=== PATIENT | male | born 1960 | race Caucasian/White ===

== ENCOUNTER → 2019-05-15 09:16 | Outpatient (BNVA) | payer BC, SELFPAY | PROVIDERS: Family Provider Nurse Practitioner Family; PCP Registered Nurse; Visit Provider Registered Nurse | DX: E11.9 Type 2 diabetes mellitus without complications (principal); I10 Essential (primary) hypertension | CPT/HCPCS: 83036 ==

== ENCOUNTER → 2019-08-11 08:31 | Outpatient (BNVA) | payer BC, SELFPAY | PROVIDERS: Family Provider Nurse Practitioner Family; PCP Registered Nurse; Visit Provider Registered Nurse | DX: E11.9 Type 2 diabetes mellitus without complications (principal); I10 Essential (primary) hypertension; E78.5 Hyperlipidemia, unspecified; N40.0 Benign prostatic hyperplasia without lower urinary tract symptoms | CPT/HCPCS: 80061; 82044; 83036; 84153 ==

== ENCOUNTER → 2019-11-27 13:40 | Outpatient (BNVA) | payer BC, SELFPAY | PROVIDERS: Family Provider Nurse Practitioner Family; PCP Registered Nurse; Visit Provider Registered Nurse | DX: E11.9 Type 2 diabetes mellitus without complications (principal) | CPT/HCPCS: 80053; 83036 ==

== ENCOUNTER → 2019-12-11 13:09 | Outpatient (BNVA) | payer BC, SELFPAY | PROVIDERS: Family Provider Nurse Practitioner Family; PCP Registered Nurse; Visit Provider Registered Nurse | DX: L98.9 Disorder of the skin and subcutaneous tissue, unspecified (principal) | CPT/HCPCS: 88305 ==

== ENCOUNTER → 2020-04-08 08:12 | Outpatient (BNVA) | payer BC, SELFPAY | PROVIDERS: Family Provider Nurse Practitioner Family; PCP Registered Nurse; Visit Provider Registered Nurse | DX: E11.9 Type 2 diabetes mellitus without complications (principal) | CPT/HCPCS: 83036 ==

== ENCOUNTER → 2020-07-26 09:27 | Outpatient (BNVA) | payer OTHER, SELFPAY | PROVIDERS: Family Provider Nurse Practitioner Family; PCP Registered Nurse; Visit Provider Registered Nurse | DX: E11.9 Type 2 diabetes mellitus without complications (principal); I10 Essential (primary) hypertension; Z12.5 Encounter for screening for malignant neoplasm of prostate | CPT/HCPCS: 80053; 80061; 82043; 83036; 85025; G0103 ==

== ENCOUNTER → 2020-12-31 08:19 | Outpatient (BNVA) | payer OTHER, SELFPAY | PROVIDERS: Family Provider Nurse Practitioner Family; PCP Registered Nurse; Visit Provider Registered Nurse | DX: E11.9 Type 2 diabetes mellitus without complications (principal) | CPT/HCPCS: 80053; 83036 ==

== ENCOUNTER → 2021-02-04 08:09 | Outpatient (BNVA) | payer OTHER, SELFPAY | PROVIDERS: Family Provider Nurse Practitioner Family; PCP Registered Nurse; Referring Provider Registered Nurse; Visit Provider Internal Medicine | DX: E11.65 Type 2 diabetes mellitus with hyperglycemia (principal); E11.59 Type 2 diabetes mellitus with other circulatory complications; I25.10 Atherosclerotic heart disease of native coronary artery without angina pectoris; E78.5 Hyperlipidemia, unspecified; I10 Essential (primary) hypertension; Z87.891 Personal history of nicotine dependence | CPT/HCPCS: 99204 ==

== ENCOUNTER → 2021-05-13 11:02 | Outpatient (BNVA) | payer MEDICAID, SELFPAY | PROVIDERS: Family Provider Nurse Practitioner Family; PCP Registered Nurse; Visit Provider Registered Nurse | DX: E78.5 Hyperlipidemia, unspecified (principal); E11.65 Type 2 diabetes mellitus with hyperglycemia; I10 Essential (primary) hypertension | CPT/HCPCS: 80053; 80061; 85025 ==

== ENCOUNTER → 2021-05-14 08:41 | Outpatient (BNVA) | payer MEDICAID, SELFPAY | PROVIDERS: Family Provider Nurse Practitioner Family; PCP Registered Nurse; Visit Provider Registered Nurse | DX: E11.65 Type 2 diabetes mellitus with hyperglycemia (principal) | CPT/HCPCS: 83036 ==

== ENCOUNTER → 2021-08-15 09:18 | Outpatient (BNVA) | payer MEDICAID, SELFPAY | PROVIDERS: Family Provider Nurse Practitioner Family; PCP Registered Nurse; Visit Provider Registered Nurse | DX: E11.59 Type 2 diabetes mellitus with other circulatory complications (principal); I25.10 Atherosclerotic heart disease of native coronary artery without angina pectoris; Z12.11 Encounter for screening for malignant neoplasm of colon; E11.65 Type 2 diabetes mellitus with hyperglycemia; M47.816 Spondylosis without myelopathy or radiculopathy, lumbar region; I10 Essential (primary) hypertension | CPT/HCPCS: 80053; 83036 ==

== ENCOUNTER → 2021-10-03 15:41 | Outpatient (BNVA) | payer MEDICAID, SELFPAY | PROVIDERS: Family Provider Nurse Practitioner Family; PCP Registered Nurse; Visit Provider Surgery | DX: Z12.11 Encounter for screening for malignant neoplasm of colon (principal) | CPT/HCPCS: 99024 ==

== ENCOUNTER → 2021-12-08 08:43 | Outpatient (BNVA) | payer MEDICAID, SELFPAY | PROVIDERS: Family Provider Nurse Practitioner Family; PCP Registered Nurse; Visit Provider Registered Nurse | DX: N40.0 Benign prostatic hyperplasia without lower urinary tract symptoms (principal); Z12.5 Encounter for screening for malignant neoplasm of prostate; E11.65 Type 2 diabetes mellitus with hyperglycemia; E11.9 Type 2 diabetes mellitus without complications; I10 Essential (primary) hypertension | CPT/HCPCS: 83036; 84153 ==

== ENCOUNTER 2021-12-17 05:36 | Day surgery (SDC) | payer MEDICAID, SELFPAY ==
[2021-12-15 08:52] VITALS: BMI 29.5
[2021-12-17 06:27] VITALS: BP 130/85; PULSE 72; RESP 18; TEMP 36.1; O2SAT 98
[2021-12-17] MEDS: sodium chloride 0.9% 1,000 ML 30 ML IV (06:41)
--- NOTE | 2021-12-17 07:03 | PM.HP ---
Providers/Chief Complaint Primary Care Provider: LAUREN France Chief Complaint: Need for colon cancer screening History of Present Illness Anthony Meza is a 61 year old male who presents for his first screening colonoscopy. He has no abdominal complaints. Review of Systems General: Reports: 10 or more systems reviewed and unremarkable except in HPI and below Medications/Allergies Home Medications Medication Instructions Recorded Confirmed Last Taken Type aspirin 81 mg tablet,delayed 81 mg PO QDAY 05/15/19 12/15/21 12/15/21 History release cetirizine 10 mg capsule (All Day 10 mg PO QDAY 05/15/19 12/15/21 12/15/21 History Allergy (cetirizine)) cholecalciferol (vitamin D3) 25 1,000 unit PO QDAY 05/15/19 12/15/21 12/15/21 History mcg (1,000 unit) capsule niacin 1,000 mg tablet,extended 1,000 mg PO DAILY 05/15/19 12/17/21 12/16/21 History release omega-3 fatty acids 1,000 mg 1,000 mg PO QDAY 05/15/19 12/15/21 12/15/21 History capsule (Fish Oil Concentrate) saw palmetto 160 mg capsule 160 mg PO DAILY 05/15/19 12/17/21 12/16/21 History nitroglycerin 0.4 mg sublingual 0.4 mg sublingual Q5M PRN chest 07/26/20 12/15/21 Unknown Rx tablet pain #7 tabs pen needle, diabetic 32 gauge x #100 ea 02/04/21 12/08/21 Unknown Rx (BD Eboni 2nd Gen Pen Needle) metoprolol tartrate 50 mg tablet 25 mg PO BID 90 days #90 tabs 11/07/21 12/17/21 12/17/21 Rx ezetimibe 10 mg tablet (Zetia) 10 mg PO DAILY #90 tabs 11/26/21 12/15/21 12/15/21 Rx dapagliflozin 10 mg tablet 10 mg PO DAILY 90 days #90 tabs 12/08/21 12/15/21 12/16/21 Rx (Farxiga) semaglutide (Ozempic) 0.5 mg (0.4 mL) SUBCUT .once a 12/08/21 12/17/21 12/14/21 Rx week 30 days #1.5 mL lisinopril 5 mg tablet 5 mg PO DAILY 12/15/21 12/15/21 12/15/21 History metformin 1,000 mg tablet 1,000 mg PO BID 12/15/21 12/15/21 12/16/21 History simvastatin 40 mg tablet 40 mg PO DAILY 12/15/21 12/15/21 12/15/21 History Allergies Allergy/AdvReac Type Severity Reaction Status Date / Time Penicillins Allergy Mild unknown Verified 12/15/21 08:49 povidone-iodine Allergy Mild rash Verified 12/15/21 08:49 [From Betadine] soap [From Betadine] Allergy Mild rash Verified 12/15/21 08:49 PFSH Acute PFSH: Medical History BPH (benign prostatic hyperplasia) Coronary artery disease Diabetes type 2, controlled DJD (degenerative joint disease) Hypertension Surgical History History of coronary artery balloon dilation Hx of heart artery stent Family History Father Heart attack Hypertension Mother Diabetes Social History Smoking and tobacco status: former smoker (stop six years ago) Quit status (tobacco): has quit using tobacco Second hand smoke exposure: No Smoking risk assessment/counseling performed?: Yes Alcohol intake: never Desire information about alcohol rehabilitation?: No Counseling given: Yes Desire information about substance/drug rehabilitation?: No Counseling given: Yes Adopted: No Caregiver/support person: No Lives independently: Yes Household members: spouse Housing: House Marital status: Number of children: 1 Highest education level completed: 9th Grade service: No Current occupational status: unemployed History of recent travel: No Vitals/I&O/Wt Last Vital Signs Temp 97 F L 12/17/21 06:27 Pulse 72 12/17/21 06:27 Resp 18 12/17/21 06:27 BP 130/85 12/17/21 06:27 Pulse Ox 98 12/17/21 06:27 O2 Del Method 12/17/21 06:27 Weight last 48 hrs Weight 200 lb Physical Exam Narrative: General : Patient is well developed , no acute distress, oriented x3 Head : Normal cephalic, a-traumatic. Ears : Pinnae and external canal are normal. Hearing is normal. Eyes : PERRLA, Sclera and injection are normal. No conjunctival discharge. Nose : Mucous membranes are without erythema. Throat : buccal mucosa is normal, gums are without significant recession or hypertrophy. Lungs : Equal chest rise bilaterally, no use of accessory muscles, trachea is midline. Cor : Rate and rhythm are normal. Abdomen : Soft, ND, NT, no g/r/m Extremities : No edema, no cyanosis or clubbing, dorsalis pedis pulses are present bilaterally, non-tender to palpation of calves. Upper extremities are normal bilaterally. Back : non-tender to palpation, no CVA tenderness. Neuro : CN II - XII intact, Upper and lower extremities have equal and full strength A&P Assessment and plan (1) Colon cancer screening: Status: Acute Plan Colonoscopy The risks and benefits of the procedure, including bleeding, infection, intestinal perforation requiring surgery, missed lesion, or explained to the patient. He is understanding of the risks and wishes to proceed. Attestations Medical Necessity Statement*: Will go home Coding Level of Care Code Acute Electronics Lead for Chg Fwd Diagnoses Colon cancer screening Z12.11
--- NOTE | 2021-12-17 07:29 | P.ANESASSM_ITS ---
Pre-Anesthetic Assessment Height/Weight: Height 1.75 m Weight 90.718 kg Temp Pulse Resp BP Pulse Ox O2 Del Method 97 F L 72 18 130/85 98 12/17/21 06:27 12/17/21 06:27 12/17/21 06:27 12/17/21 06:27 12/17/21 06:27 12/17/21 06:27 Preop Diagnosis: screening Operation Date: 12/17/21 07:30 Proposed Procedures p Colonoscopy 58319, Z12.11(Not Applicable) - Aakash Alcala, DO Was Beta Denise taken within 24 hours: Yes Last intake: Intake Last Liquid Date 12/16/21 Last Liquid Time 21:45 Last Solid Date 12/15/21 Last Solid Time 18:30 Social No alcohol and No tobacco Exam alert, oriented x 3, clear to auscultation bilaterally and regular rate & rhythm Airway Submandibular: within normal limits Cervical ROM: within normal limits Mallampati: Class II Comments: Comments: several missing back teeth History/ROS No significant history except as noted and No significant complaints Pulmonary None reported CV/HEM Coronary Artery Disease, Hypertension and Myocardial Infarction stents 2009 None reported Hepatic None reported Metabolic Diabetes Mellitus [facility] [place] Osteoarthritis/DJD Neuropsych None reported Anesthetic Plan ASA status: 3 Anesthesia: Anesthesia Evaluation and MAC Risk of > 500 ml blood loss (7ml/kg in children): No Medications/Allergies Home Medications Medication Instructions Recorded Confirmed Last Taken Type aspirin 81 mg tablet,delayed 81 mg PO QDAY 05/15/19 12/15/21 12/15/21 History release cetirizine 10 mg capsule (All Day 10 mg PO QDAY 05/15/19 12/15/21 12/15/21 Histo ry Allergy (cetirizine)) cholecalciferol (vitamin D3) 25 1,000 unit PO QDAY 05/15/19 12/15/21 12/15/21 History mcg (1,000 unit) capsule niacin 1,000 mg tablet,extended 1,000 mg PO DAILY 05/15/19 12/17/21 12/16/21 History release omega-3 fatty acids 1,000 mg 1,000 mg PO QDAY 05/15/19 12/15/21 12/15/21 History capsule (Fish Oil Concentrate) saw palmetto 160 mg capsule 160 mg PO DAILY 05/15/19 12/17/2122 History nitroglycerin 0.4 mg sublingual 0.4 mg sublingual Q5M PRN chest 07/26/20 12/15/21 Unknown Rx tablet pain #7 tabs pen needle, diabetic 32 gauge x #100 ea 02/04/21 12/08/21 Unknown Rx (BD Eboni 2nd Gen Pen Needle) metoprolol tartrate 50 mg tablet 25 mg PO BID 90 days #90 tabs 11/07/21 12/17/21 12/17/21 Rx ezetimibe 10 mg tablet (Zetia) 10 mg PO DAILY #90 tabs 11/26/21 12/15/21 12/15/21 Rx dapagliflozin 10 mg tablet 10 mg PO DAILY 90 days #90 tabs 12/08/21 12/15/21 12/16/21 Rx (Farxiga) semaglutide (Ozempic) 0.5 mg (0.4 mL) SUBCUT .once a 12/08/21 12/17/21 12/14/21 Rx week 30 days #1.5 mL lisinopril 5 mg tablet 5 mg PO DAILY 12/15/21 12/15/21 12/15/21 History metformin 1,000 mg tablet 1,000 mg PO BID 12/15/21 12/15/21 12/16/21 History simvastatin 40 mg tablet 40 mg PO DAILY 12/15/21 12/15/21 12/15/21 History Allergies Allergy/AdvReac Type Severity Reaction Status Date / Time Penicillins Allergy Mild unknown Verified 12/15/21 08:49 povidone-iodine Allergy Mild rash Verified 12/15/21 08:49 [From Betadine] soap [From Betadine] Allergy Mild rash Verified 12/15/21 08:49 Current Medications Generic Name Dose Route Start Last Admin Trade Name Freq PRN Reason Stop Dose Admin Sodium Chloride 1,000 mls @ 30 mls/hr 12/17/21 06:15 12/17/21 06:41 Sodium Chloride 0.9% IV 12/18/21 06:14 30 mls/hr .Q24H GIRMA Administration PFSH Anesthesia Medical History BPH (benign prostatic hyperplasia) Coronary artery disease Diabetes type 2, controlled DJD (degenerative joint disease) Hypertension Surgical History History of coronary artery balloon dilation Hx of heart artery stent Family History Father Heart attack Hypertension Mother Diabetes Social History Smoking and tobacco status: former smoker (stop six years ago) Quit status (tobacco): has quit using tobacco Second hand smoke exposure: No Smoking risk assessment/counseling performed?: Yes Alcohol intake: never Desire information about alcohol rehabilitation?: No Counseling given: Yes Desire information about substance/drug rehabilitation?: No Counseling given: Yes Adopted: No Caregiver/support person: No Lives independently: Yes Household members: spouse Housing: House Marital status: Number of children: 1 Highest education level completed: 9th Grade service: No Current occupational status: unemployed History of recent travel: No Data Anesthesia Cardiac Studies: No Data to Display
[2021-12-17 08:31] VITALS: BP 112/77; PULSE 74; RESP 18; TEMP 36.1; O2SAT 92
[2021-12-17 08:42] VITALS: BP 144/90; PULSE 84; RESP 18; O2SAT 94
--- NOTE | 2021-12-17 12:12 | ANE.PACU2 ---
Inpatient post-anesthesia follow up: Airway intact: Yes Vital signs: Temperature 97.0 F Pulse Rate 84 Respiratory Rate 18 Blood Pressure 144/90 Pulse Oximetry 94 Oxygen Delivery Me thod Room Air Oxygen Flow Rate Fraction of Inspir ed Oxygen Hydration adequate: Yes Nausea and vomiting: No Pain level: 1 Mental status: Baseline
== END 2021-12-17 08:59 | disposition home or self-care (01) ==
PROVIDERS: PCP Registered Nurse; Visit Provider Surgery
PROC: 0DJD8ZZ Inspection of Lower Intestinal Tract, Via Natural or Artificial Opening Endoscopic (ICD-10-PCS; CPT 45378; principal; 2021-12-17 07:30)
DX: Z12.11 Encounter for screening for malignant neoplasm of colon (principal); K63.5 Polyp of colon; K57.30 Diverticulosis of large intestine without perforation or abscess without bleeding; E11.9 Type 2 diabetes mellitus without complications; I10 Essential (primary) hypertension; I25.10 Atherosclerotic heart disease of native coronary artery without angina pectoris; I25.2 Old myocardial infarction; Z79.84 Long term (current) use of oral hypoglycemic drugs; Z79.82 Long term (current) use of aspirin; Z87.891 Personal history of nicotine dependence; Z88.0 Allergy status to penicillin; Z95.5 Presence of coronary angioplasty implant and graft
CPT/HCPCS: 45385; 88305; J2704; J7030

== ENCOUNTER → 2022-05-21 10:18 | Outpatient (BNVA) | payer MEDICAID, SELFPAY | PROVIDERS: PCP Registered Nurse; Visit Provider Registered Nurse | DX: E11.9 Type 2 diabetes mellitus without complications (principal); E78.5 Hyperlipidemia, unspecified; E55.9 Vitamin D deficiency, unspecified; I10 Essential (primary) hypertension; H69.90 Unspecified Eustachian tube disorder, unspecified ear; E11.59 Type 2 diabetes mellitus with other circulatory complications; I25.10 Atherosclerotic heart disease of native coronary artery without angina pectoris | CPT/HCPCS: 80053; 80061; 81000; 82043; 82306; 83036; 85025; G0103 ==

== ENCOUNTER → 2022-05-28 08:14 | Outpatient (BNVA) | payer MEDICAID, SELFPAY | PROVIDERS: PCP Registered Nurse; Visit Provider Registered Nurse | DX: R31.9 Hematuria, unspecified (principal); E11.9 Type 2 diabetes mellitus without complications | CPT/HCPCS: 81000; 88112 ==

== ENCOUNTER → 2022-10-02 08:26 | Outpatient (BNVA) | payer MEDICAID, SELFPAY | PROVIDERS: PCP Registered Nurse; Visit Provider Registered Nurse | DX: E11.9 Type 2 diabetes mellitus without complications (principal); I10 Essential (primary) hypertension | CPT/HCPCS: 80053; 80061; 83036; 85025 ==

== ENCOUNTER → 2023-04-06 10:56 | Outpatient (BNVA) | payer MEDICAID, SELFPAY | PROVIDERS: PCP Registered Nurse; Visit Provider Registered Nurse | DX: E11.59 Type 2 diabetes mellitus with other circulatory complications; I25.10 Atherosclerotic heart disease of native coronary artery without angina pectoris; I10 Essential (primary) hypertension | CPT/HCPCS: 80053; 83036 ==

== ENCOUNTER → 2023-09-08 09:34 | Outpatient (BNVA) | payer MEDICAID, SELFPAY | PROVIDERS: PCP Registered Nurse; Visit Provider Registered Nurse | DX: E55.9 Vitamin D deficiency, unspecified (principal); E11.9 Type 2 diabetes mellitus without complications; N40.0 Benign prostatic hyperplasia without lower urinary tract symptoms; Z79.899 Other long term (current) drug therapy | CPT/HCPCS: 80053; 80061; 82306; 83036; 85025; G0103 ==

== ENCOUNTER → 2023-11-26 09:40 | Outpatient (BNVA) | payer MEDICAID, SELFPAY | PROVIDERS: PCP Registered Nurse; Visit Provider Registered Nurse | DX: E11.9 Type 2 diabetes mellitus without complications (principal) | CPT/HCPCS: 80053; 83036 ==

== ENCOUNTER → 2024-03-30 11:03 | Outpatient (BNVA) | payer MEDICAID, SELFPAY | PROVIDERS: PCP Registered Nurse; Visit Provider Registered Nurse | DX: E11.59 Type 2 diabetes mellitus with other circulatory complications (principal); I25.10 Atherosclerotic heart disease of native coronary artery without angina pectoris; E78.5 Hyperlipidemia, unspecified; E11.9 Type 2 diabetes mellitus without complications; I10 Essential (primary) hypertension | CPT/HCPCS: 80053; 80061; 83036; 85025 ==

== ENCOUNTER → 2024-07-25 07:34 | Outpatient (BNVA) | payer MEDICAID, SELFPAY | PROVIDERS: PCP Registered Nurse; Visit Provider Registered Nurse | DX: E11.9 Type 2 diabetes mellitus without complications (principal) | CPT/HCPCS: 80048; 83036 ==

== ENCOUNTER 2024-07-26 07:00 | Outpatient (CLI) | payer MEDICAID, SELFPAY ==
--- NOTE | 2024-07-26 07:16 | XR_ITS ---
WS: [id number] Exam: XR lumbar spine 2-3V* [id number] Date/Time of Exam: 07/26/2024 7:44 AM Reason For Exam: M54.9 - Dorsalgia, unspecified No acute fracture. Intervertebral discs are preserved. Mild facet DJD at L4-5 and L5-S1. XR/XR lumbar spine 2-3V* [id number] IMPRESSION: 1. Mild degenerative changes. No fracture or malalignment.
== END 2024-07-26 07:01 | disposition home or self-care (01) ==
PROVIDERS: PCP Registered Nurse; Visit Provider Registered Nurse
DX: M47.896 Other spondylosis, lumbar region (principal); M54.30 Sciatica, unspecified side; M47.897 Other spondylosis, lumbosacral region
CPT/HCPCS: 72100

== ENCOUNTER → 2024-11-15 11:10 | Outpatient (BNVA) | payer MEDICAID, SELFPAY | PROVIDERS: PCP Registered Nurse; Visit Provider Registered Nurse | DX: E11.9 Type 2 diabetes mellitus without complications (principal); E55.9 Vitamin D deficiency, unspecified | CPT/HCPCS: 82306; 83036 ==

== ENCOUNTER → 2025-03-01 08:34 | Outpatient (BNVA) | payer MEDICAID, SELFPAY | PROVIDERS: PCP Registered Nurse; Visit Provider Registered Nurse | DX: E11.9 Type 2 diabetes mellitus without complications (principal) | CPT/HCPCS: 80053; 80061; 82607; 83036; 85025 ==